=== PATIENT | female | born 1995 | race Caucasian/White ===

== ENCOUNTER 2017-07-06 10:06 | Inpatient (IN) | payer OTHER ==
[~2017-07-06] VITALS: Ht 154.9 cm; Wt 53.1 kg
[2017-07-06 10:21] VITALS: Ht 154.9 cm; Wt 53.1 kg
[2017-07-06] MEDS ORDERED: PNV1TABL91 PO (10:22)
[2017-07-06 10:27] VITALS: BP 105/69; PULSE 83; RESP 18
[2017-07-06] MEDS ORDERED: CARBOPROST 250 MCG INJ IM PRN ×2 (10:30→18:30)
[2017-07-06] MEDS ORDERED: METHYLERGONOVINE 0.2 MG INJ IM PRN ×2 (10:30→18:30)
[2017-07-06] MEDS ORDERED: CEFAZOLIN 2 GM/50 ML (PMX) 50 ML IVPB SCH (10:30)
[2017-07-06] MEDS ORDERED: OXYTOCIN 30 UNITS/LR 500 ML IV SCH (10:30)
[2017-07-06] MEDS ORDERED: MISOPROSTOL 200 MCG TAB PR PRN ×2 (10:30→18:30)
[2017-07-06] MEDS ORDERED: OXYTOCIN 30 UNITS/LR 500 ML IV PRN ×2 (10:30→18:30)
[2017-07-06] MEDS ORDERED: LACTATED RINGER'S 1,000 ML IV SCH (11:13)
[2017-07-06 11:18] LABS: BASOPHILS % 0.2 % (0.0-2.0); EOSINOPHILS % 0.6 % (0.0-7.0); HEMATOCRIT 40.3 % (37.0-47.0); HEMOGLOBIN 13.6 g/dl (12.0-16.0); LYMPHOCYTES # 1.2 10^3/ul (0.8-2.9); LYMPHOCYTES % 18.3 % (15.0-51.0); MEAN CORPUSCULAR HEMOGLOBIN 32.1 pg (29.0-33.0); MEAN CORPUSCULAR HGB CONC 33.7 g/dl (32.0-37.0); MEAN PLATELET VOLUME 11.5 fl (7.4-10.4); MONOCYTE # 0.6 10^3/ul (0.3-0.9); MONOCYTES % 8.3 % (0.0-11.0); NEUTROPHIL # 4.7 10^3/ul (1.6-7.5); NEUTROPHILS % 71.1 % (39.0-77.0); PLATELET COUNT 149 10^3/UL (140-415); RED BLOOD COUNT 4.24 10^6/ul (4.20-5.40); RED CELL DISTRIBUTION WIDTH 12.8 % (11.5-14.5); WHITE BLOOD COUNT 6.6 10^3/ul (4.8-10.8)
[2017-07-06 11:41] LABS: INR 0.89; PROTIME 12.1 Sec (11.9-14.9); PT RATIO 0.9
[2017-07-06 11:42] LABS: PARTIAL THROMBOPLASTIN TIME 26.4 Sec (25.0-35.0)
--- NOTE | 2017-07-06 12:23 | HP ---
Date/Time of Note Date/Time of Note DATE: 07/06/17 TIME: 12:19 OB - History Hx of Present Chief Complaint: scheduled c/s and BTL Estimated Due Date: Jul 13, 2017 : 3 Para: 2 Spontaneous : 0 Therapeutic : 0 Care: Good Care Ultrasounds: Normal mid trimester US Obstetrical Complications: None Medical Complications: Other (+ HBsAg) Past Family/Social History * Past Medical, Surgical, Family and Obstetric Histories reviewed from chart. GBS Status: Negative OB Admission Exam Vital Signs Vital Signs Vital Signs Date Time Temp Pulse Resp B/P Pulse Ox O2 Delivery O2 Flow Rate FiO2 07/06/17 10:27 97.7 83 18 105/69 Room Air Physical Exam HEENT: WNL Heart: Rhythm Normal Lungs: Clear, Equal Abdomen: WNL Extremities: Normal Reflexes: Normal Heart Rate: 120's Accelerations: Accelerations Present Decelerations: No Decelerations Varibility: Moderate Last 72 hours Lab Results CBC & BMP 07/06/17 10:45 OB Assessment/Plan Reason for admission: section, other Plan: Section, Other (BTL) DA VASQUEZ MD Jul 06, 2017 12:23
[2017-07-06] MEDS ORDERED: METOCLOPRAMIDE 10 MG INJ ONE (12:58)
[2017-07-06] MEDS ORDERED: OXYTOCIN 30 UNITS/LR 500 ML IV ONE (12:58)
[2017-07-06] MEDS ORDERED: EPHEDrine SULFATE 50 MG/5 ML SYG ONE (12:58)
[2017-07-06] MEDS ORDERED: morphine SULFATE/PF (10 MG/10 ML) INJ ONE (12:58)
[2017-07-06] MEDS ORDERED: ONDANSETRON 4 MG INJ ONE (12:58)
[2017-07-06] MEDS ORDERED: OXYTOCIN 10 UNIT INJ ONE (12:59)
--- NOTE | 2017-07-06 14:24 | OPPN ---
Date/Time of Note Date/Time of Note DATE: 07/06/17 TIME: 14:21 Operative Report Planned Procedure Procedure date Jul 06, 2017 Procedure(s) Repeat c/s and BTL Performed by Da Vasquez MD Superintendent [employer] Dr Araiza Anesthesiologist: BOB CONNOLLY MD Pre-procedure diagnosis previous c/s Anesthesia Type: spinal Post-Procedure Post-procedure diagnosis Same Findings Live Baby [], Apgars [] and [], weight [], position [], [] presentation []cord. Estimated Blood Loss: 400 - 500 mls (500 ml) Specimen(s) Placenta and bilateral Fallopian tubes Grafts/Implant(s) none Complication(s) none DA VASQUEZ MD Jul 06, 2017 14:24
[2017-07-06] MEDS ORDERED: NALOXONE (0.4 MG/ML) INJ IV PRN (14:30)
[2017-07-06] MEDS ORDERED: ONDANSETRON 4 MG INJ IV PRN (14:30)
[2017-07-06] MEDS ORDERED: morphine SULFATE/PF (10 MG/10 ML) INJ SPINAL ONE (14:30)
[2017-07-06] MEDS ORDERED: DIPHENHYDRAMINE 50 MG INJ IV PRN (14:30)
[2017-07-06] MEDS ORDERED: morphine 4 MG/ML VIAL IV PRN (14:30)
[2017-07-06] MEDS ORDERED: morphine 2 MG INJ IV PRN (14:30)
[2017-07-06] MEDS ORDERED: KETOROLAC 30 MG INJ IV PRN (14:30)
[2017-07-06] MEDS ORDERED: EPHEDrine SULFATE 50 MG/5 ML SYG IV PRN (14:30)
--- NOTE | 2017-07-06 17:10 | OPR ---
DATE OF OPERATION: 07/06/2017 PREOPERATIVE DIAGNOSES: 1. at 39 weeks with previous section x2. 2. Voluntary sterilization. POSTOPERATIVE DIAGNOSES: 1. at 39 weeks with previous section x2. 2. Voluntary sterilization. OPERATION: Repeat low transverse section and bilateral tubal ligation. SURGEON: Da Dickerson MD HAND TAPPER: Tommy Araiza MD ANESTHESIA: Spinal. ANESTHESIOLOGIST: Dr. Calderon PROCEDURE: The patient was taken to the operating room and placed on the operating table. After duggan ccessful spinal anesthesia was given, the patient was placed in supine position. The area was prepa red and draped in the usual sterile fashion. Spinal anesthesia was tested and was satisfactory. Us ing a scalpel, Pfannenstiel incision was made about 2 fingerbreadths above the symphysis pubis. The incision was carried to the fascia. The fascia was incised and extended bilaterally with Arechiga scis sors. Two Maureen were used to separate the fascia from the muscle. The muscle was dissected in the midline down to peritoneum. The peritoneum was secured with 2 Kellys and incised with a Metzenbaum scissors. Using a scalpel, a small transverse incision was made in the lower segment of the uterus . Upon entering the uterine cavity, bandage scissors were inserted to extend the incision bilateral ly, curved up. Baby was delivered from cephalic presentation. After suctioning clear of amniotic f luid, the baby was handed off to the team in attendance. Apgars were 8 and 9. The placent a was delivered without difficulty. The uterus was closed with #1 Monocryl continuous locked. Afte r assuring hemostasis, both ovaries and tubes were inspected, looked normal. The right fallopian tu be was grasped with a Grisel clamp. Using 0 plain suture ligature, a 5 cm segment of the right fal lopian tube was doubly ligated. Using Metzenbaum scissors, a portion of the right fallopian tube ab ove the ligated area was excised and sent to Pathology. The same procedure was repeated on the left fallopian tube. After assuring hemostasis, the peritoneum was closed with 2-0 Vicryl continuous. The fascia was closed with #1 Vicryl continuous in 2 segments. The skin was closed with breana. ESTIMATED BLOOD LOSS: 500 mL. COUNTS: All counts were correct. Dictated By: DA DICKERSON MD GD/NTS Conf#: [id number] DID#: [id number]
[2017-07-06 18:00] VITALS: BP 127/64; PULSE 90; RESP 18
[2017-07-06] MEDS: LACTATED RINGER'S 1,000 ML IV SCH (18:03)
[2017-07-06 18:30] VITALS: BP 122/62; PULSE 78; RESP 18
[2017-07-06 20:00] VITALS: BP 121/72; PULSE 83; RESP 18
[2017-07-07 00:10] VITALS: BP 116/72; PULSE 72; RESP 19
[2017-07-07] MEDS: LACTATED RINGER'S 1,000 ML IV SCH ×2 (02:26→10:41)
[2017-07-07 04:15] VITALS: BP 106/61; PULSE 88; RESP 19
[2017-07-07 07:30] VITALS: BP 108/66; PULSE 86; RESP 18
[2017-07-07 09:48] LABS: HEMATOCRIT 33.8 % (37.0-47.0); HEMOGLOBIN 11.5 g/dl (12.0-16.0); MEAN CORPUSCULAR HEMOGLOBIN 32.2 pg (29.0-33.0); MEAN CORPUSCULAR VOLUME 94.7 fl (82.0-101.0); MEAN PLATELET VOLUME 10.8 fl (7.4-10.4); PLATELET COUNT 121 10^3/UL (140-415); RED BLOOD COUNT 3.57 10^6/ul (4.20-5.40); RED CELL DISTRIBUTION WIDTH 12.8 % (11.5-14.5); WHITE BLOOD COUNT 8.7 10^3/ul (4.8-10.8)
[2017-07-07 09:51] LABS: POSITIVE DIFF @See below
[2017-07-07 10:26] LABS: EOSINOPHILS % (M) 2 % (0-7); MONOCYTES % (M) 3 % (0-11); PLATELET ESTIMATE DECREASED; REACTIVE LYMPHOCYTES% (M) 1 % (0-0)
[2017-07-07 12:00] VITALS: BP 100/59; PULSE 89; RESP 16
[2017-07-07] MEDS ORDERED: LANOLIN 7 GM TUBE TOP PRN (16:30)
[2017-07-07] MEDS: HYDROCODONE/APAP (5/325) TAB PO PRN (17:54)
--- NOTE | 2017-07-07 18:37 | QN ---
Documentation Comment No complaint Afebrile VSS Abdomen soft ND POD #1 Stable Ambulate Advance diet. DA VASQUEZ MD Jul 07, 2017 18:37
[2017-07-07 20:10] VITALS: BP 110/70; RESP 17
[2017-07-07] MEDS: IBUPROFEN 800 MG TAB PO SCH (21:46)
[2017-07-08] MEDS: HYDROCODONE/APAP (5/325) TAB PO PRN ×3 (01:51→20:36)
[2017-07-08 03:45] VITALS: BP 98/56; PULSE 76; RESP 18
[2017-07-08] MEDS: IBUPROFEN 800 MG TAB PO SCH ×3 (05:50→21:41)
[2017-07-08 07:45] VITALS: BP 101/58; PULSE 76; RESP 18
[2017-07-08 16:00] VITALS: BP 99/68; PULSE 85; RESP 16
[2017-07-08 19:35] VITALS: BP 119/78; PULSE 87; RESP 19
--- NOTE | 2017-07-08 20:39 | DS ---
Date/Time of Note Date/Time of Note DATE: 07/08/17 TIME: 20:38 Obstetrical Discharge Record Final Diagnosis Final Diagnosis: Term delivered Vaginal Delivery Obstetrical Delivery: Bilateral Tubal Ligation Section Section: Repeat Condition on Discharge Physical Assessment Voiding: Yes Bowel Movement: Yes Breast: Soft, non-tender, Filling Fundus: Firm Abdomen and Incision: Incision intact Calf Tenderness: No Patient Condition: Stable DA VASQUEZ MD Jul 08, 2017 20:39
[2017-07-09 04:20] VITALS: BP 110/64; PULSE 71; RESP 17
[2017-07-09] MEDS: IBUPROFEN 800 MG TAB PO SCH ×3 (05:39→21:41)
[2017-07-09 07:59] VITALS: BP 108/64; RESP 18
[2017-07-09 08:00] VITALS: BP 108/64; PULSE 65; RESP 18
[2017-07-09] MEDS: HYDROCODONE/APAP (5/325) TAB PO PRN ×2 (11:36→19:55)
[2017-07-09 16:00] VITALS: BP 105/70; PULSE 72; RESP 18
[2017-07-09 20:00] VITALS: BP 101/68; PULSE 77; RESP 18
[2017-07-10 04:00] VITALS: BP 103/72; PULSE 79; RESP 20
[2017-07-10] MEDS: HYDROCODONE/APAP (5/325) TAB PO PRN (05:12)
[2017-07-10] MEDS: IBUPROFEN 800 MG TAB PO SCH ×2 (05:59→13:16)
[2017-07-10 08:30] VITALS: BP 119/69; PULSE 75; RESP 18
--- NOTE | 2017-07-10 13:51 | QN ---
Documentation Comment Patient was scheduled to be discharged on 07/09/2017. Due to baby's need for phototherapy, patient stayed until today. Patient is doing well. Condition: Stable D/C home. DA VASQUEZ MD Jul 10, 2017 13:51
== END 2017-07-10 16:18 | disposition home or self-care (01) | DRG 766 ==
LOC: L-D 10:06 → PP1 18:02
PROVIDERS: ADMIT Obstetrics & Gynecology; ATTEND Obstetrics & Gynecology
PROC: 0UB70ZZ Excision of Bilateral Fallopian Tubes, Open Approach (ICD-10-PCS; 2017-07-06)
PROC: 10D00Z1 Extraction of Products of Conception, Low, Open Approach (ICD-10-PCS; principal; 2017-07-06 12:30)
DX: O34.211 Maternal care for low transverse scar from previous cesarean delivery (principal); Z30.2 Encounter for sterilization; Z37.0 Single live birth; Z3A.39 39 weeks gestation of pregnancy
CPT/HCPCS: 85025; 85610; 85730; 86592; 86703; 86704; 86850; 86900; 86901; 87340; 88302; 94760; 99464; J0690; J1885; J2274; J2405; J2590; J2765; J7120